=== PATIENT | female | born 1960 | race Caucasian/White ===

== ENCOUNTER → 2016-05-25 | Outpatient (CLI) | payer OTHER ==
[~2016-05-25] MED LIST: AMBIEN 5MG TABLE5 MG PO; ASPIRIN E.C. 8181 MG PO; CALCIUM 600600 MG PO; COLACE 100100 MG/CAP PO; DITROPAN 5MG TAB5 MG PO; EFFEXOR 3737.5 MG/TA PO; FISH OIL1000 MG PO; LEXAPRO 10MG10 MG PO; LEXAPRO 5MG5 MG PO; LISINOPRIL10 MG PO; LOVASTATIN40 MG PO; MASON NATURAL1200 MG PO; MELATONIN1 M1 PO; MULTIPLE VITAMI1 TA5 PO; MULTIVITAMIN FO1 CAP PO; NOLVADEX 1010 MG/TAB PO; PHENTERMINE15 MG PO; PRILOSEC 20MG20 MG PO; TAMOXIFEN CITRA20 MG PO; WELLBUTRIN SR150 M1 PO
== END ==
LOC: MC.RAD 15:20
DX: Z12.31 Encounter for screening mammogram for malignant neoplasm of breast (principal); D24.2 Benign neoplasm of left breast; D24.1 Benign neoplasm of right breast; Z85.3 Personal history of malignant neoplasm of breast; Z80.3 Family history of malignant neoplasm of breast

== ENCOUNTER 2017-11-28 15:48 | Outpatient (RCR) | payer OTHER ==
[~2017-11-28 15:48] MED LIST changes: +LUTEIN20 M1 PO; +MEVACOR40 MG PO; +MULTIPLE VITAMI1 CAP PO; +ZESTRIL 10MG10 MG PO
== END 2018-02-26 | disposition home or self-care (01) ==
LOC: MKS.ESL.PT
DX: N39.3 Stress incontinence (female) (male) (principal); N81.84 Pelvic muscle wasting; Z79.899 Other long term (current) drug therapy

== ENCOUNTER → 2018-02-16 | Outpatient (CLI) | payer OTHER | LOC: MC.RAD 16:00 | DX: Z12.31 Encounter for screening mammogram for malignant neoplasm of breast (principal) ==

== ENCOUNTER 2018-09-02 21:10 | Emergency (ER) | payer OTHER ==
[~2018-09-02] VITALS: Ht 167.6 cm; Wt 90.9 kg
[2018-09-02 21:18] VITALS: BP 136/81; PULSE 100; TEMP 98.2
[2018-09-03] MEDS ORDERED: CEPHALEXIN500 M1 PO (03:35)
== END 2018-09-03 03:30 | disposition home or self-care (01) ==
LOC: COL.ER 21:10
DX: T63.301A Toxic effect of unspecified spider venom, accidental (unintentional), initial encounter (principal); L03.115 Cellulitis of right lower limb; Z85.3 Personal history of malignant neoplasm of breast

== ENCOUNTER 2018-09-08 15:15 | Observation (INO) | payer OTHER ==
[~2018-09-08] VITALS: Ht 165.1 cm; Wt 94.9 kg
[~2018-09-08 15:15] MED LIST changes: +CEPHALEXIN500 M1 PO
[2018-09-08 16:57] LABS: BASO % 0.4 % (0.0-2.0); EOS # 0.2 (0.0-0.7); GRAN # 5.3 (1.4-6.5); GRAN % 58.6 % (42.2-75.2); HEMATOCRIT 42.8 % (37.0-47.0); HEMOGLOBIN 14.1 g/dl (12.5-16.0); LYMPH # 2.8 (1.2-3.4); LYMPH % 30.6 % (20.0-51.0); MEAN CELL VOLUME 94 fl (80.0-100.0); MEAN CORPUSCULAR HEMOGLOBIN 31 pg (27.0-31.0); MEAN CORPUSCULAR HGB CONC 33 g/dl (33.0-37.0); MEAN PLATELET VOLUME 9.5 fl (7.4-10.4); MONO # 0.7 (0.1-0.6); MONO % 8.1 % (1.7-9.3); PLATELET COUNT 331 K/mm3 (130-400); RED BLOOD COUNT 4.54 M/mm3 (4.10-5.30)
[2018-09-08 17:11] LABS: BILIRUBIN,TOTAL 0.3 mg/dL (0.0-1.0); C-REACTIVE PROTEIN 0.6 mg/dL (0.0-0.9); CALCIUM 9.1 mg/dL (8.4-10.2); CREATININE, serum 0.75 (0.52-1.25); POTASSIUM 4.2 mmol/L (3.4-5.0); TOTAL PROTEIN 7.6 gm/dL (6.4-8.2)
[2018-09-08 18:11] LABS: ERYTHROCYTE SEDIMENTATION RATE 1 mm/hr (0-30)
[2018-09-08 19:48] VITALS: BP 132/78; PULSE 88; TEMP 97.5
--- NOTE | 2018-09-08 20:45 | NUR ---
PT RESTING IN BED A+OX4. REPORTS NO PAIN. SPIDER BITE REDNESS TO THE RIGHT LEG MARKED/OUTLINED AT THIS TIME. INCEASED IN SIZE FROM PREVIOUS JOSEPHINE. PULSES FELT. NO SOA. VSS. TELE ON. LOVENOX FOR VTE. NO OTHER SKIN BRAKEDOWM. NO NEEDS AT THIS TIEM. CALL LIGHT IN REACH
[2018-09-08] MEDS ORDERED: SINEMET 25/101 UDTAB PO (21:00)
[2018-09-08 23:08] VITALS: BP 134/61; PULSE 91; TEMP 98.7
[2018-09-08 23:10] VITALS: BP 134/61; PULSE 93; TEMP 98.7
[2018-09-09 04:09] VITALS: BP 126/71; PULSE 95; TEMP 98.1
--- NOTE | 2018-09-09 06:01 | NUR ---
PT HAD AN UNEVENTFUL NIGHT. REPORTED NO PAIN. RIGHT THIGH SITE IS RED- MARKED WITH SKIN MARKER TIME AND DATE ON SITE. IV SITE FLUSHES WELL, NO PAIN NO SWELLING. IV DOXICYCLINE HAD NO ADVERSE REACTION. NO NEEDS AT THIS TIME. CALL LIGHT IN REACH
--- NOTE | 2018-09-09 07:14 | NUR ---
REPORT GIVEN TO GERMAN WALSH
[2018-09-09 07:35] LABS: HEMATOCRIT 41.2 % (37.0-47.0); HEMOGLOBIN 13.5 g/dl (12.5-16.0); MEAN CELL VOLUME 94 fl (80.0-100.0); MEAN CORPUSCULAR HEMOGLOBIN 31 pg (27.0-31.0); MEAN CORPUSCULAR HGB CONC 33 g/dl (33.0-37.0); PLATELET COUNT 332 K/mm3 (130-400); RED BLOOD COUNT 4.38 M/mm3 (4.10-5.30)
[2018-09-09 07:47] VITALS: BP 110/76; PULSE 100; TEMP 98.3
[2018-09-09 07:49] LABS: CREATININE, serum 0.57 (0.52-1.25); POTASSIUM 4.3 mmol/L (3.4-5.0)
[2018-09-09 08:19] LABS: TSH w REFLEX 0.631 uIU/mL (0.465-4.680)
[2018-09-09 08:31] LABS: BAND 1 % (0-10); LYMPHOCYTE 19 % (20.0-51.0); NEUTROPHILS 80 % (42.0-75.2); PLATELET ESTIMATE NORMAL (NORMAL)
--- NOTE | 2018-09-09 11:26 | NUR ---
Visited, listened, and provided spiritual care for the patient.
[2018-09-09 11:50] VITALS: BP 119/68; PULSE 107; TEMP 98.1
[2018-09-09 15:53] VITALS: BP 120/59; PULSE 96; TEMP 98.6
--- NOTE | 2018-09-09 16:31 | NUR ---
SW met with patient about discharge planning. 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 Patient lives independently at home with her . Patient's PCP is Dr Kaba and she obtains prescriptions from [facility]. Patient is independent with all ADLs. Patient has a DPOA-HC. SW does not anticipate any discharge needs.
--- NOTE | 2018-09-09 17:45 | NUR ---
PT HAD UNEVENTFUL DAY. REDNESS HAS MINIMIZED SOME TODAY IN RT LEG AT CELLULITIS SITE. ONLY C/O PAIN IS A HEADACHE, RECIEVED TYENOL NEEDED. RECEIVED DOXYCICLINE THIS SHIFT, NEEDED PRN ZOFRAN WITH MEDICATION, DUE TO SOME NAUSEA FROM MED. NO OTHER ISSUES VOICED THIS SHIFT.
[2018-09-09 19:45] VITALS: BP 119/74; PULSE 105; TEMP 98.7
--- NOTE | 2018-09-09 19:50 | NUR ---
pt resting in bed A+Ox4. reports no pain. red site to the rig thigh has decreased in size. iv to left hand flushing well, no redness, no swelling. pt reports some tenderness with IV. lungs clear x4. heart rate 105. pt reports thats her heart rate baseline. no needs at this time. call light in reach .
[2018-09-09 23:50] VITALS: BP 115/80; PULSE 93; TEMP 98.6
[2018-09-10 04:04] VITALS: BP 114/68; PULSE 91; TEMP 98.2
--- NOTE | 2018-09-10 05:09 | NUR ---
pt had an uneventful night. iv flushes well, no redness, no swelling. iv fluids running at ordered rate. tolerated antibiotic, no reports of nausea. c/o AARON- prn tylenol given. pt slept off and on throughout night. lovenox for vte. tele dc. right thigh site- decreased in size since start of shift. no pain at site. no needs at this time. call light in reach
--- NOTE | 2018-09-10 06:45 | NUR ---
report given to jordan lemon
[2018-09-10 07:33] VITALS: BP 121/75; PULSE 79; TEMP 97.7
--- NOTE | 2018-09-10 08:00 | NUR ---
PT STATED THAT THE PAIN IN HER LEG WAS MINAMAL. STATED THAT REDNESS WAS ABOUT LIKE IT WAS YESTERDAY, THAT THE REDNESS WAS BETTER YESTERDAY THAT IT HAD DIMINISHED SOME THEN. NO OTHER ISSUES OR CONSERNS VOICED. PLEASENT AND COOPERATIVE WITH CARES.
[2018-09-10 08:45] LABS: BASO # 0.1 (0.0-0.2); BASO % 0.5 % (0.0-2.0); EOS # 0.1 (0.0-0.7); EOS % 1.1 % (0-4.0); GRAN # 6.7 (1.4-6.5); GRAN % 56.8 % (42.2-75.2); HEMATOCRIT 39.6 % (37.0-47.0); HEMOGLOBIN 12.7 g/dl (12.5-16.0); LYMPH # 4.1 (1.2-3.4); LYMPH % 34.6 % (20.0-51.0); MEAN CELL VOLUME 96 fl (80.0-100.0); MEAN CORPUSCULAR HEMOGLOBIN 31 pg (27.0-31.0); MEAN CORPUSCULAR HGB CONC 32 g/dl (33.0-37.0); MEAN PLATELET VOLUME 10.2 fl (7.4-10.4); MONO # 0.8 (0.1-0.6); MONO % 6.6 % (1.7-9.3); PLATELET COUNT 325 K/mm3 (130-400); RED BLOOD COUNT 4.13 M/mm3 (4.10-5.30); REDCELL DISTRIBUTION WIDTH-CV 13.3 % (11.5-14.5)
[2018-09-10 09:08] LABS: ALBUMIN 3.4 gm/dL (3.5-5.0); BILIRUBIN,TOTAL 0.2 mg/dL (0.0-1.0); CALCIUM 8.9 mg/dL (8.4-10.2); CREATININE, serum 0.64 (0.52-1.25); POTASSIUM 3.8 mmol/L (3.4-5.0); TOTAL PROTEIN 6.4 gm/dL (6.4-8.2)
--- NOTE | 2018-09-10 10:30 | NUR ---
THIS NURSE WENT TO ADMINSTER PT IV ABX. PT STATED SHE WANTED TO WAIT AND THAT THE DOCTOR HAD TOLD HER THAT HE WAS ABOUT TO SWITCH HER TO A PO MED AND THEN SHE COULD DISCHARGE THIS AFTERNOON.
[2018-09-10 11:32] VITALS: BP 112/65; PULSE 90; TEMP 98.2
[2018-09-10] MEDS ORDERED: BACTRIM DS 8001 TAB PO (11:49)
--- NOTE | 2018-09-10 12:15 | NUR ---
PT DISCHARGE INFORMATION WENT OVER WITH PT. SINGATURES OBTAINED. IV REMOVED. PT CALLING FOR A RIDE. NO QUESTIONS VOICED AT THIS TIME.
--- NOTE | 2018-09-10 12:30 | NUR ---
THIS NURSE ADMINISTERED DOSE OF SEPTRA TO PT
--- NOTE | 2018-09-10 13:00 | NUR ---
PT ASKED THIS NURSE TO TAKE PICTURES OF REDDENED AREA ON LEG TO SHOW HER PCP AT HER NEXT APPOINTMENT.
--- NOTE | 2018-09-10 13:30 | NUR ---
PT RIDE HERE TO [employer] PT. PT DENIED NEED FOR STAFF TO ESCORT OUT OF FACILITY.
== END 2018-09-10 13:30 | disposition home or self-care (01) ==
LOC: COL.ER 15:15 → MEDICAL 17:38
PROVIDERS: Emergency Medicine; Family Medicine; ADMIT Hospitalist
DX: L03.90 Cellulitis, unspecified (principal); R00.0 Tachycardia, unspecified; I10 Essential (primary) hypertension; Z85.3 Personal history of malignant neoplasm of breast; E78.5 Hyperlipidemia, unspecified; G47.00 Insomnia, unspecified; F32.9 Major depressive disorder, single episode, unspecified; F41.9 Anxiety disorder, unspecified; T63.331A Toxic effect of venom of brown recluse spider, accidental (unintentional), initial encounter; Z90.710 Acquired absence of both cervix and uterus; Z87.891 Personal history of nicotine dependence; Z88.1 Allergy status to other antibiotic agents
CPT/HCPCS: 99222-AI; 99233-AI; 99239; G0378; J0696; J1650; J2405; J2920; J3370; J7030; J7050

== ENCOUNTER → 2019-09-18 | Outpatient (CLI) | payer OTHER ==
[~2019-09-18] MED LIST changes: +BACTRIM DS 8001 TAB PO; +SINEMET 25/101 UDTAB PO
== END ==
LOC: MC.RAD 08-23 17:30
DX: Z12.31 Encounter for screening mammogram for malignant neoplasm of breast (principal); Z98.890 Other specified postprocedural states; Z98.82 Breast implant status; Z92.3 Personal history of irradiation

== ENCOUNTER 2021-06-04 16:30 | Outpatient (RCR) | payer OTHER | END 2021-06-27 | disposition home or self-care (01) | LOC: WSPT | DX: M54.50 Low back pain, unspecified (principal); G47.61 Periodic limb movement disorder; G47.00 Insomnia, unspecified ==

== ENCOUNTER → 2021-08-04 | Outpatient (CLI) | payer OTHER | LOC: MC.RAD 06-25 15:30 | DX: Z12.31 Encounter for screening mammogram for malignant neoplasm of breast (principal) ==